=== PATIENT | female | born 1955 | race Caucasian/White ===

== ENCOUNTER → 2017-01-04 | Outpatient (CLI) | payer OTHER ==
[~2017-01-04] MED LIST: ADVIN25/60 INH; ALPR-411 PO; BENZ1CAP90 PO; CLOP1TAB15 PO; CRD200 PO; LOVA40TA4 PO; LPR25 PO; METO50TA16 PO; PRT40 PO; TYL325X PO; ZOLP12.5 PO
--- NOTE | 2017-01-04 15:08 | MAMMOGRAPHY REPORT ---
BILATERAL DIGITAL SCREENING MAMMOGRAM WITH CAD: 01/04/2017 CLINICAL HISTORY: Routine screening. Patient has no complaints. TECHNIQUE: Current study was also evaluated with a Computer Aided Detection (CAD) system. Bilatera l CC and MLO views were obtained. COMPARISON: Comparison is made to exams dated: 01/27/2015 mammogram, 08/06/2013 mammogram, 05/29/2011 mammogram, 05/23/2010 mammogram - [facility], 05/12/2009, and 10/06/1991 mammogram - [facility]. BREAST COMPOSITION: There are scattered areas of fibroglandular density in both breasts. FINDINGS: No suspicious masses, calcifications, or areas of architectural distortion are noted in e ither breast. There has been no significant interval change compared to prior exams. Small bilatera l benign-appearing masses and bilateral benign appearing calcifications are stable compared to prior exams. IMPRESSION: ACR BI-RADS CATEGORY 2: BENIGN There is no mammographic evidence of malignancy. A 1 year screening mammogram is recommended. The p atient will receive written notification of the results. Approximately 10% of breast cancers are not detected with mammography. A negative mammographic repor t should not delay biopsy if a clinically suggestive mass is present. Tammy Frey M.D. ah/:01/04/2017 12:44:27 Client Services Associate: Lula MAI)(M), [facility] letter sent: Normal 1/2 BI-RADS Code: ACR BI-RADS Category 2: Benign
== END | disposition home or self-care (01) ==
LOC: C.MAMM 11:49
PROVIDERS: ATTEND Physician Assistant
DX: Z12.31 Encounter for screening mammogram for malignant neoplasm of breast (principal)

== ENCOUNTER 2017-06-14 12:38 | Emergency (ER) | payer OTHER ==
[~2017-06-14] VITALS: Ht 167.6 cm; Wt 74.0 kg
[~2017-06-14 12:38] MED LIST changes: -BENZ1CAP90 PO; -METO50TA16 PO
[2017-06-14 12:42] VITALS: BP 156/80; PULSE 70; TEMP 36.9; O2SAT 93; Ht 167.6 cm; Wt 74.0 kg
--- NOTE | 2017-06-14 12:57 | EMERGENCY ROOM VISIT NOTE ---
ED Visit Note First contact with patient: 12:48 CHIEF COMPLAINT: Finger laceration HISTORY OF PRESENT ILLNESS: This 61-year-old female patient presents to the emergency department ambulatory after cutting the right second finger on a sharp knife at home. The patient states that she had washed the knife and was turning and ran her finger on the blade by mistake. The bleeding has stopped. Denies weakness or numbness of the finger. The patient has full range of motion of the fingers. The patient denies any pain. The patient denies any other injuries. The patient's tetanus shot is up to date. The patient is currently taking Levaquin for an upper respiratory tract infection. REVIEW OF SYSTEMS: A 6 system review of systems was completed with positives and pertinent negatives listed in the HPI. ALLERGIES: No known drug allergies MEDICATIONS: See nursing notes PMH: TIA, hypertension, GERD, hyperlipidemia, anxiety SOCIAL HISTORY: The patient lives locally. She does not smoke PHYSICAL EXAM: Vital Signs: Reviewed Nurse's notes, vital signs stable. GENERAL : This is a 61-year-old female, in no acute distress, well developed, well nourished. SKIN: There is a 2.5 cm long laceration on the dorsal aspect of the right second finger. The edges gape apart with traction. There is no foreign material in the wound and it looks clean. There is minimal bleeding. The extensor tendon is visible in the base of the wound without obvious involvement. Extension and flexion of the finger is full and strong. Full range of motion of the wrist and other fingers. Capillary refill less than 2 seconds. Normal sensation to light and sharp touch. EMERGENCY DEPARTMENT COURSE: I examined the patient. Using sterile technique the wound was cleaned with Betadine. 4 ml of 1% buffered lidocaine was used to infiltrate the wound to anesthetize the patient. The area was sterilely draped. Once the patient was numb, the wound was copiously irrigated under pressure with sterile saline. The wound was explored and the tendon is visible in the base of the wound but does not appear to be lacerated. The laceration was repaired using 6 simple interrupted 5-0 nylon sutures. The patient tolerated the procedure well. The bleeding stopped. The area was cleaned with sterile saline and dressed with bacitracin ointment and bandage. The patient was placed in a metal splint by the emergency department recycling technician and the position was satisfactory The patient is already taking Levaquin for an upper respiratory tract infection. She should continue this. The patient also requested cough medicine and states her family doctor forgot to give it to her the other day. She will be given Tessalon Perles. She should follow-up with orthopedics to ensure that this is healing well. The patient was discharged home in good condition. DIAGNOSIS: Finger laceration DISCHARGE INSTRUCTIONS & TREATMENT: Keep wound clean and dry. Do not allow any crusting or dried blood to accumulate on sutures. If this occurs, use a 1:1 solution of hydrogen peroxide/water on a Q-tip to clean the wound. Use an antibiotic ointment for 3-4 days, then let wound dry. Suture removal in 10-12 days. Return sooner for any signs of infection (increasing redness, swelling, drainage). Ice and elevate for swelling and pain. Ibuprofen 600 mg every 6 hrs for pain. Keep covered when in sun until sutures removed then SPF 50 or higher for one year. Vitamin E oil if desired two weeks after suture removal for reduction of scar. Wear the splint over the next 7-10 days or until seen by orthopedics. Contact orthopedics today to schedule a follow-up appointment for further evaluation and management. Tessalon Perles as prescribed, as needed for cough. Continue the Levaquin Current/Historical Medications Scheduled Benzonatate (Tessalon Perles), 200 MG PO TID Clopidogrel (Plavix), 75 MG PO DAILY Lovastatin (Mevacor), 40 MG PO DAILY Metoprolol Tartrate (Lopressor) (Lopressor), 50 MG PO BID Scheduled PRN Alprazolam (Xanax), 0.5 MG PO DAILY PRN for Anxiety Zolpidem Tartrate (Ambien Cr), 12.5 MG PO HS PRN for Insomnia Allergies Coded Allergies: No Known Allergies (Verified , 02/07/16) Vital Signs Date Time Temp Pulse Resp B/P (MAP) Pulse Ox O2 Delivery O2 Flow Rate FiO2 06/14/17 12:42 36.9 70 18 156/80 93 Room Air Departure Information Impression Primary Impression: Laceration of finger Additional Impression: Cough Dispostion Home / Self-Care Condition GOOD Prescriptions Benzonatate (Tessalon Perles) 200 Mg Cap 200 MG PO TID for 5 Days, #15 CAP Prov: Melissa Kunz PA-C 06/14/17 Referrals Preston Joy D.O. (PCP) Pola Dias MD Patient Instructions ED Laceration All, [facility] Additional Instructions Keep wound clean and dry. Do not allow any crusting or dried blood to accumulate on sutures. If this occurs, use a 1:1 solution of hydrogen peroxide/ water on a Q-tip to clean the wound. Use an antibiotic ointment for 3-4 days, then let wound dry. Suture removal in 10-12 days. Return sooner for any signs of infection (increasing redness, swelling, drainage). Ice and elevate for swelling and pain. Ibuprofen 600 mg every 6 hrs for pain. Keep covered when in sun until sutures removed then SPF 50 or higher for one year. Vitamin E oil if desired two weeks after suture removal for reduction of scar. Wear the splint over the next 7-10 days or until seen by orthopedics. Contact orthopedics today to schedule a follow-up appointment for further evaluation and management. Tessalon Perles as prescribed, as needed for cough. Continue the Levaquin Problem Qualifiers Primary Impression: Laceration of finger Encounter type: initial encounter Finger: index finger Damage to nail status: without damage Foreign body presence: without foreign body Laterality: left Qualified Codes: S61.211A - Laceration without foreign body of left index finger without damage to nail, initial encounter
[2017-06-14] MEDS ORDERED: XYLOCAINE 1%/SOD BICARB 20 ML VIAL INFIL ONE (13:00)
[2017-06-14] MEDS ORDERED: METO50TA16 PO (13:00)
[2017-06-14] MEDS ORDERED: BENZ1CAP90 PO (13:29)
== END 2017-06-14 13:36 | disposition home or self-care (01) ==
LOC: C.EDB 12:41 → C.EDD 13:36
DX: S61.210A Laceration without foreign body of right index finger without damage to nail, initial encounter (principal); W26.0XXA Contact with knife, initial encounter; I10 Essential (primary) hypertension; K21.9 Gastro-esophageal reflux disease without esophagitis; E78.5 Hyperlipidemia, unspecified; F41.9 Anxiety disorder, unspecified

== ENCOUNTER 2018-04-07 09:06 | Emergency (ER) | payer OTHER ==
[~2018-04-07] VITALS: Ht 167.6 cm; Wt 79.4 kg
[~2018-04-07 09:06] MED LIST changes: -ADVIN25/60 INH; -CRD200 PO; -LPR25 PO; +METO50TA16 PO; -PRT40 PO; -TYL325X PO
[2018-04-07 09:12] VITALS: TEMP 36.7; Ht 167.6 cm; Wt 79.4 kg
[2018-04-07] MEDS ORDERED: KETOROLAC TROMETHAMINE 60 MG/2 ML VIAL IM STA (09:42)
--- NOTE | 2018-04-07 10:11 | DIAGNOSTIC IMAGING REPORT ---
LUMBAR SPINE WITHOUT CT DOSE: 841.86 mGy.cm HISTORY: Pain low back pain radiating down rt leg TECHNIQUE: Multiaxial CT images of the lumbar spine were performed and reformatted in the sagittal and coronal plane without the use of contrast. A dose lowering technique was utilized adhering to the principles of ALARA. COMPARISON: None. FINDINGS: No fractures. No subluxation. Paraspinal soft tissues are unremarkable. Vertebral body stature is normal. Moderate degenerative disc change L5-S1. Transaxial images show broad-based bulging discs L3-L4 and L4-5. Moderate multifactorial spinal stenosis L5-S1 with significant narrowing of the right neuroforamina. IMPRESSION: 1. Moderate multifactorial spinal stenosis L5-S1 with narrowing of the right neuroforamina. 2. Mild degenerative change throughout all remaining components of the lumbar region. The above report was generated using voice recognition software. It may contain grammatical, syntax or spelling errors. Electronically signed by: Carl Ray M.D. 04/07/2018 10:10 AM Dictated Date/Time: 04/07/2018 10:08 AM
[2018-04-07] MEDS ORDERED: PRED20TA PO (11:08)
[2018-04-07] MEDS ORDERED: NAPR-22 PO (11:08)
--- NOTE | 2018-04-07 11:08 | EMERGENCY ROOM VISIT NOTE ---
History Report prepared by Gadiel: Shaye Samson Under the Supervision of: Dr. Bladimir Prince D.O. First contact with patient: 09:23 Chief Complaint: BACK PAIN Stated Complaint: SEVERE BACK PAIN, CAN HARDLY WALK History of Present Illness The patient is a 62 year old female who presents to the Emergency Room with complaints of worsening right lower back pain over the last week. The patient states that she was unable to get up to go to the bathroom last night secondary to her pain. The patient notes that the pain radiates down her legs and describes the pain as being sharp. She states that movement exacerbates her pain. The patient reports that she has tried alleviating her symptoms with heat , ice, and aspirin but that nothing helped significantly. The patient denies being diabetic or having kidney problems, but reports a history of hypertension and hyperlipidemia. Source of History: patient Onset: over the last week Position: back (right lower ) Quality: sharp Timing: worsening Modifying Factors (Worsening): movement Note: additional symptom: leg pain Review of Systems See HPI for pertinent positives & negatives. A total of 10 systems reviewed and were otherwise negative. Past Medical & Surgical Medical Problems: (1) HTN (hypertension) (2) Hyperlipidemia (3) Leukocytosis (leucocytosis) (4) No pertinent past medical history Family History Patient reports no known family medical history. Social History Smoking Status: Current Every Day Smoker Drug Use: none Marital Status: Current/Historical Medications Scheduled Clopidogrel (Plavix), 75 MG PO DAILY Lovastatin (Mevacor), 40 MG PO DAILY Metoprolol Tartrate (Lopressor) (Lopressor), 50 MG PO BID Naproxen (Naprosyn), 500 MG PO BID Prednisone (Prednisone), 3 TAB PO DAILY Scheduled PRN Alprazolam (Xanax), 0.5 MG PO DAILY PRN for Anxiety Zolpidem Tartrate (Ambien Cr), 12.5 MG PO HS PRN for Insomnia Allergies Coded Allergies: No Known Allergies (Verified , 04/07/18) Physical Exam Vital Signs Date Time Temp Pulse Resp B/P (MAP) Pulse Ox O2 Delivery O2 Flow Rate FiO2 04/07/18 10:55 63 18 175/119 97 Room Air 04/07/18 09:12 36.7 73 20 185/81 95 Room Air Physical Exam CONSTITUTIONAL/VITAL SIGNS: Reviewed / noted above. GENERAL: Non-toxic in appearance. INTEGUMENTARY: Warm, dry, and [place]. HEAD: Normocephalic. EYES: without scleral icterus or trauma. ENT/OROPHARYNX: clear and moist. LYMPHADENOPATHY/NECK: Is supple without lymphadenopathy or meningismus. RESPIRATORY: Lungs clear and equal. CARDIOVASCULAR: Regular rate and rhythm. GI/ABDOMEN: Soft and nontender. No organomegaly or pulsatile mass. No rebound or guarding. Normal bowel sounds. EXTREMITIES: Warm and well perfused. BACK: No CVA tenderness. Tenderness to palpation along the right lumbar and sacral paraspinal soft tissue. NEUROLOGICAL: Intact without focal deficits. PSYCHIATRIC: normal affect. MUSCULOSKELETAL: Normally developed with good muscle tone. Medical Decision & Procedures ER Provider Diagnostic Interpretation: Radiology results as stated below per my review and radiologist interpretation: LUMBAR SPINE WITHOUT CT DOSE: 841.86 mGy.cm HISTORY: Pain low back pain radiating down rt leg TECHNIQUE: Multiaxial CT images of the lumbar spine were performed and reformatted in the sagittal and coronal plane without the use of contrast. A dose lowering technique was utilized adhering to the principles of ALARA. COMPARISON: None. FINDINGS: No fractures. No subluxation. Paraspinal soft tissues are unremarkable. Vertebral body stature is normal. Moderate degenerative disc change L5-S1. Transaxial images show broad-based bulging discs L3-L4 and L4-5. Moderate multifactorial spinal stenosis L5-S1 with significant narrowing of the right neuroforamina. IMPRESSION: 1. Moderate multifactorial spinal stenosis L5-S1 with narrowing of the right neuroforamina. 2. Mild degenerative change throughout all remaining components of the lumbar region. The above report was generated using voice recognition software. It may contain grammatical, syntax or spelling errors. Electronically signed by: Carl Ray M.D. 04/07/2018 10:10 AM Dictated Date/Time: 04/07/2018 10:08 AM Medications Administered Medications (Trade) Dose Ordered Sig/Rita Route Start Time Stop Time Status Last Admin Dose Admin Ketorolac Tromethamine (Toradol Inj) 60 mg NOW STAT IM 04/07/18 09:42 04/07/18 09:43 DC 04/07/18 09:53 60 MG Prednisone (PredniSONE TAB) 60 mg NOW STAT PO 04/07/18 11:08 04/07/18 11:09 DC 04/07/18 11:13 60 MG ED Course 0936: Previous medical records were reviewed. The patient was evaluated in room A9B. A complete history and physical examination was performed. 0942: Ordered Toradol Inj 60 mg IM. 1108: Ordered Prednisone 60 mg PO. 1109: On reevaluation, the patient is resting. I discussed the results and findings with the patient. She verbalized agreement of the treatment plan. The patient was discharged home. Medical Decision Differential considered includes cauda equina syndrome, conus medullaris, spinal cord compression syndrome, peripheral nerve compression, fractures or subluxations, intra-abdominal pathology such as abdominal aortic aneurysm or kidney stones, muscle strain, transverse myelitis, spinal cord injury. This is a 62-year-old female who presents to the ED with a chief complaint of back pain that radiates down the right leg. Her pain is in the low back. She states that she has had symptoms for over a week or 2 but her symptoms worsened after she was helping her son move some stuff a week or 2 ago. She states that she tried some aspirin as well as some heat and cold and that did not seem to help much. Her symptoms are worse with movement. Her physical exam reveals some tenderness along the soft tissue of the right lumbar paraspinal region. Her blood pressure is elevated. This could be a combination of relation to pain and hypertension. CT scan of her lumbar spine reveals disc bulges in the L3 through L5 areas. There is some moderate multifactorial spinal stenosis in the L5 through S1 areas as well as some narrowing of the right neural foramina. Patient was told the results. She was started on a course of prednisone. She was advised to use Naprosyn for pain. She is advised follow-up with her family doctor for physical therapy and further evaluation. Medication Reconcilliation Current Medication List: was personally reviewed by me Blood Pressure Screening Patient's blood pressure: Elevated blood pressure Blood pressure disposition: Referred to PCP Impression Primary Impression: Low back pain Additional Impression: Sciatica Scribe Attestation The scribe's documentation has been prepared under my direction and personally reviewed by me in its entirety. I confirm that the note above accurately reflects all work, treatment, procedures, and medical decision making performed by me. Departure Information Dispostion Home / Self-Care Prescriptions Naproxen (Naprosyn) 500 Mg Tab 500 MG PO BID, #20 TAB Prov: Bladimir Prince D.O. 04/07/18 Prednisone (Prednisone) 20 Mg Tab 3 TAB PO DAILY for 5 Days, #15 TAB Prov: Bladimir Prince D.O. 04/07/18 Referrals Preston Joy D.O. (PCP) Forms HOME CARE DOCUMENTATION FORM, IMPORTANT VISIT INFORMATION Patient Instructions ED Sciatica, My [facility] Additional Instructions Naprosyn as prescribed. Prednisone as prescribed. Follow-up with your doctor for further evaluation and care. Call tomorrow for appointment. Problem Qualifiers
[2018-04-07 11:28] VITALS: BP 143/92; PULSE 65; O2SAT 94
[2018-04-07] MEDS ORDERED: PERCOCET HOME PACK PO ONE (11:30)
== END 2018-04-07 11:35 | disposition home or self-care (01) ==
LOC: C.EDB 09:08 → C.EDA 11:35
DX: M51.16 Intervertebral disc disorders with radiculopathy, lumbar region (principal); M48.07 Spinal stenosis, lumbosacral region; I10 Essential (primary) hypertension; E78.5 Hyperlipidemia, unspecified; Z79.899 Other long term (current) drug therapy; Z79.52 Long term (current) use of systemic steroids; Z79.02 Long term (current) use of antithrombotics/antiplatelets; F17.200 Nicotine dependence, unspecified, uncomplicated